=== PATIENT | female | born 1980 | race Caucasian/White ===

== ENCOUNTER 2018-08-13 13:57 | Inpatient (IN) | payer BC ==
[2018-08-13 14:35] VITALS: BMI 30.7
[2018-08-13] MEDS ORDERED: Misoprostol 200 MCG TAB PR PRN (15:45)
[2018-08-13] MEDS ORDERED: NS / Oxytocin 40 units/1000ml 1,000 ML IV PRN (15:45)
[2018-08-13] MEDS ORDERED: Carboprost 250 MCG/ML AMP IM PRN (15:45)
[2018-08-13] MEDS ORDERED: Lactated Ringer's 1,000 ML IV PRN (15:45)
[2018-08-13] MEDS ORDERED: Diphenoxylate HCl/Atropine Tablet PO PRN ×2 (15:45)
[2018-08-13] MEDS ORDERED: Methylergonovine 0.2 MG/ML VIAL IM PRN ×2 (15:45→18:13)
[2018-08-13] MEDS ORDERED: Ondansetron PF 4 MG/2 ML Vial IVP PRN ×2 (15:45→18:13)
[2018-08-13] MEDS ORDERED: Ibuprofen 800 MG TAB PO PRN ×2 (15:45→18:01)
[2018-08-13] MEDS ORDERED: Promethazine HCl 25 MG/ML VIAL IM PRN (15:45)
[2018-08-13] MEDS ORDERED: HYDROcodone/Acetaminophen 5/325 mg Tablet PO PRN ×4 (15:45→18:13)
[2018-08-13] MEDS ORDERED: Lidocaine 1% (PF) 30 ML VIAL SC PRN (15:45)
--- NOTE | 2018-08-13 15:53 | PDOC.LDHP ---
Labor and Delivery H&P Chief complaint: contractions HPI: Patient has been having irregular contractions for the past two days. the come and go in intensity and frequency. Report good movement. Denies LOF/rom. Current gestational age (weeks): 40 Due date: 08/08/18 Dating criteria: last menstrual period Grav: 8 Para: 6 OB History Details: 2004 - 39weeks , forceps, 9lbs 4 ounces 2005 8lbs 15oz 2007 39weeks 8lbs 4 oz 2009 39 weeks 8lbs 7 oz 2011 SAB 2013 39 week 6 lbs 13 oux 2016 38 week SVDs 8. 7oz 2018 - current Current complications: other (AMA) Abnormal US findings: No Past Medical History: thyroid cancer. Current medications: pre- vitamins Previous surgical history: other (thyroidectomy 2015 tonsillectomy) Allergies/Adverse Reactions: Allergies Allergy/AdvReac Type Severity Reaction Status Date / Time No Known Allergies Allergy Unverified 08/13/18 14:36 Social history: none - Physical Exam Vital signs reviewed and normal: yes General: breathing through contractions Heart: RRR Lungs: nonlabored breathing Abdomen: gravid FHT: category 1 - Vaginal Exam cm dilated: 6 Effacement: 90% Station: -1 - OB Labs Blood type: O RH: positive Antibody Screen: negative HIV: negative RPR: negative HEPSAg: negative GBS: negative Rubella: immune - Assessment L&D Assessment: term patient in labor (in early labor) - Plan Plan: admit to L&D -: low intervention protocols. anticipate Anticipate PPH for grand multiparous.
[2018-08-13 16:27] LABS: Hemoglobin 11.9 g/dL (12.0-16.0); Mean Corpuscular HGB CONC 32.9 g/dL (32.0-36.0); Mean Corpuscular Hemoglobin 27.7 pg (27.0-31.0); Mean Platelet Volume 7.7 fL (7.4-10.4); Platelet Count 180 thou/uL (130-400); RBC Distribution Width 13.3 % (11.5-14.5); Red Blood Cell (RBC) Count 4.32 mill/uL (4.20-5.40)
[2018-08-13 17:06] LABS: Syphilis Antibody Nonreactive (Nonreactive); Syphilis Antibody Index 0.04 S/CO (<1.00 Non-Reactive)
[2018-08-13 17:07] LABS: HBSAg Index 0.19 S/CO (0-0.99); Hep B Surf Ag Non-Reactive S/CO (NonReactive)
[2018-08-13] MEDS ORDERED: Oxytocin 10 UNITS/ML VIAL ONE (17:26)
--- NOTE | 2018-08-13 17:57 | PDOC.OPDEL ---
OB Operative/Delivery Note Delivery Dr/Surgeon: Natalie Wilson Pre-Delivery Diagnosis: active labor Procedure/Post Delivery Dx: spontaneous vaginal delivery Weeks gestation: 40 Anesthesia: none - Findings A Sex: female - 1 min: 8 - 5 min: 9 - Additional Findings/Plan Placenta delivered: spontaneous Repaired Obstetrical Laceration: none Estimated blood loss: 587mL QBL Post delivery plan: routine recovery
[2018-08-13] MEDS ORDERED: Milk Of Magnesia 30 ML UDCUP PO PRN (18:13)
[2018-08-13] MEDS ORDERED: NS / Oxytocin 40 units/1000ml 1,000 ML IV SCH (18:13)
[2018-08-13] MEDS ORDERED: Benzocaine/Menthol 20-0.5% 60 ML CAN TOP PRN (18:13)
[2018-08-13] MEDS ORDERED: Misoprostol 200 MCG TAB VAG PRN (18:13)
[2018-08-13] MEDS ORDERED: Adacel (T-DAP) 0.5 ML VIAL IM ONE (18:13)
[2018-08-13] MEDS ORDERED: Bisacodyl 10 MG SUPP PR PRN (18:13)
[2018-08-13] MEDS: Docusate Calcium (SURFAK) 240 MG CAP PO SCH (21:26)
[2018-08-13] MEDS ORDERED: Acetaminophen 325 MG TAB PO PRN ×2 (21:37)
[2018-08-13] MEDS ORDERED: Ibuprofen 800 MG TAB PO SCH (22:00)
[2018-08-14] MEDS: Ibuprofen 800 MG TAB PO SCH ×3 (02:07→19:50)
[2018-08-14 06:21] LABS: Hemoglobin 10.6 g/dL (12.0-16.0); Mean Corpuscular HGB CONC 32.9 g/dL (32.0-36.0); Mean Corpuscular Hemoglobin 27.7 pg (27.0-31.0); Mean Corpuscular Volume 84.3 fL (78.0-98.0); Platelet Count 196 thou/uL (130-400); RBC Distribution Width 13.1 % (11.5-14.5); Red Blood Cell (RBC) Count 3.84 mill/uL (4.20-5.40); White Blood Cell (WBC) Count 9.7 thou/uL (4.8-10.8)
[2018-08-14] MEDS: Ferrous Sulfate 325 MG TAB PO SCH ×2 (08:38→18:59)
[2018-08-14] MEDS: Docusate Calcium (SURFAK) 240 MG CAP PO SCH (10:50)
[2018-08-14 16:15] VITALS: BP 123/72; TEMP 97.5
== END 2018-08-14 19:50 | disposition home or self-care (01) | DRG 807 ==
LOC: L&D/OP 13:57 → L&D 17:00 → L&D-LIB 18:18 → 3SE 20:47
PROVIDERS: ADMIT Obstetrics & Gynecology; ATTEND Obstetrics & Gynecology
PROC: 10E0XZZ Delivery of Products of Conception, External Approach (ICD-10-PCS; principal; 2018-08-13)
DX: O80 Encounter for full-term uncomplicated delivery (principal); Z3A.40 40 weeks gestation of pregnancy; Z85.850 Personal history of malignant neoplasm of thyroid; Z37.0 Single live birth
CPT/HCPCS: 36415; 85027; 86780; 86850; 86900; 86901; 87340; 99285; J2001; J2590

== ENCOUNTER 2019-11-20 14:51 | Outpatient (CLI) | payer BC ==
--- NOTE | 2019-11-20 15:44 | MMO ---
Right Breast MAMMO Unilat Diag DDI RT+ELIN. CLINICAL HISTORY: Patient is 39 years old and is seen for additional evaluation requested at current screening. The patient has the following family history of breast cancer: paternal grandmother, at age 80. The patient has a history of thyroid cancer in 2016. VIEWS: The views performed were: right craniocaudal spot compression magnification; right mediolateral spot compression magnification; and right mediolateral with tomosynthesis. FILMS COMPARED: The present examination has been compared to prior imaging studies performed at [facility] on 11/11/2019, and at [facility] on 11/20/2019. This study has been interpreted with the assistance of computer-aided detection. MAMMOGRAM FINDINGS: The breast is heterogeneously dense, which could obscure a lesion on mammography. There are fine pleomorphic calcifications with segmental distribution seen in the right breast at 6 o'clock. These extend over a significant portion of the lower central and lower outer aspect of the right breast. No sonographic abnormality is seen in this region. IMPRESSION: CALCIFICATIONS IN THE RIGHT BREAST ARE SUSPICIOUS. BIOPSY IS RECOMMENDED. RESULTS AND RECOMMENDATIONS DISCUSSED WITH THE PATIENT AND QUESTIONS ANSWERED. THE RESULTS OF THIS EXAM WERE SENT TO THE PATIENT. ACR BI-RADS Category 4 - Suspicious abnormality - biopsy should be considered MAMMOGRAPHY NOTE: 1. A negative mammogram report should not delay a biopsy if a dominant of clinically suspicious mass is present. 2. Approximately 10% to 15% of breast cancers are not detected by mammography. 3. Adenosis and dense breasts may obscure an underlying neoplasm. Reported by: SELIN MCKINNEY MD Electonically Signed: [id number]
--- NOTE | 2019-11-20 15:45 | MMO ---
Right US Breast Limited Rt. CLINICAL HISTORY: Patient is 39 years old and is seen for . VIEWS: The views performed were: . FILMS COMPARED: The present examination has been compared to prior imaging studies performed at [facility] on 11/11/2019, and at [facility] on 11/20/2019. This study has been interpreted with the assistance of computer-aided detection. RIGHT BREAST ULTRASOUND FINDINGS: No sonographic abnormality is evident to correspond to the suspicious calcifications seen mammographically. IMPRESSION: AREA IN THE RIGHT BREAST IS SUSPICIOUS. BIOPSY IS RECOMMENDED. PLEASE SEE CONCURRENTLY DICTATED MAMMOGRAM REPORT. THE RESULTS OF THIS EXAM WERE SENT TO THE PATIENT. ACR BI-RADS Category 4 - Suspicious abnormality - biopsy should be considered MAMMOGRAPHY NOTE: 1. A negative mammogram report should not delay a biopsy if a dominant of clinically suspicious mass is present. 2. Approximately 10% to 15% of breast cancers are not detected by mammography. 3. Adenosis and dense breasts may obscure an underlying neoplasm. Reported by: SELIN MCKINNEY MD Electonically Signed: [id number]
== END 2019-11-20 14:52 | disposition home or self-care (01) ==
LOC: BICMAMMO 14:51
PROVIDERS: ATTEND Advanced Practice Midwife
DX: N63.10 Unspecified lump in the right breast, unspecified quadrant (principal); R92.1 Mammographic calcification found on diagnostic imaging of breast
CPT/HCPCS: G0279

== ENCOUNTER → 2019-12-10 | Day surgery (SDC) | payer BC ==
--- NOTE | 2019-12-10 09:21 | MMO ---
Stereotactic guided biopsy right breast posterior microcalcifications Stereotactic guided biopsy right breast anterior microcalcifications Surgical specimen mammography x2 Diagnostic mammogram right breast post biopsy HISTORY: Abnormal mammogram. 2 different areas of suspicious microcalcifications. FINDINGS: After explaining the procedure and answering all questions, the more posterior of the micro calcification clusters at the inferior aspect of the right breast was visualized. Sterile technique, buffered local anesthesia, stereotactic guidance, and a medial approach were used to caref ully advance a 10-gauge vacuum-assisted needle into the cluster of microcalcifications. A total of 6 specimens were obtained. Specimen mammography shows microcalcifications throughout the tissue. Loca lization clip was placed in the biopsy bed under stereotactic guidance. Needle was removed and hemostasis obtained using direct pressure. A new supply of surgical hardware was used for the second sampling. The more anterior of the microcal cification clusters at the inferior aspect of the right breast was visualized Sterile technique, buffered local anesthesia, stereotactic guidance, and a medial approach were used to carefully advanc e a 10-gauge vacuum-assisted needle into the cluster of microcalcifications. A total of 6 specimens were obtained. Specimen mammography shows microcalcifications throughout the tissue. A localization c lip was placed in the biopsy bed but was not initially seen with stereotactic imaging. A second clip was placed in the biopsy bed. Needle was removed and hemostasis obtained using direct pressure. Patient tolerated the procedure wel l and was eventually dismissed in good condition. Post procedure mammographic evaluation shows heterogeneously dense fibroglandular tissue. A portion o f the microcalcification clusters at the inferior aspect of the right breast have been removed. The localization clip associated with the more posterior cluster lies at the far anterior margin of the s ampling area. 2 localization clips are associated with the far anterior margin of the more anterior sampling area. They are seen to lie within the anterior aspect of the fluid collection seen at the ti me of the biopsy, lying in bed was the dependent portion of the cavity at the time of the procedure. IMPRESSION: Technically successful stereotactic guided biopsy of 2 separate clusters of abnormal micr ocalcifications in the right breast. Pathology is pending.
--- NOTE | 2019-12-13 09:00 | MMO ---
ADDENDUM: Pathology results are now available. Both specimens showed DCIS. This correlates with the imaging findings. Results will be discussed with the patient as she follows up with Dr. Zee. POS: TPC
== END ==
LOC: MAMMO 06:58
PROVIDERS: ATTEND Specialist
PROC: 0H9T3ZX Drainage of Right Breast, Percutaneous Approach, Diagnostic (ICD-10-PCS; principal; 2019-12-10)
DX: D05.11 Intraductal carcinoma in situ of right breast (principal); N60.21 Fibroadenosis of right breast
CPT/HCPCS: 19081; 19082; 76098; 88305; 88341; 88342

== ENCOUNTER 2020-02-25 13:46 | Outpatient (CLI) | payer BC ==
--- NOTE | 2020-02-25 14:59 | RAD ---
RADIOGRAPH CHEST 1 VIEW: DATE: 02/25/2020 HISTORY: 39-year-old female with ductal carcinoma in situ of right breast. Presurgical clearance. FINDINGS: The visualized lung gillette are clear. The cardiomediastinal silhouette and hilar shadows are normal. The lateral costophrenic angles are sharp. The osseous structures appear normal. There is no pneumothorax. IMPRESSION: Negative.
== END 2020-02-25 13:47 | disposition home or self-care (01) ==
LOC: RAD 13:46
DX: D05.11 Intraductal carcinoma in situ of right breast (principal)
CPT/HCPCS: 36415; 71045; 80053; 85027; 85610; 85730

== ENCOUNTER 2020-04-24 07:55 | Outpatient (CLI) | payer BC ==
--- NOTE | 2020-04-24 09:45 | ULT ---
TRANSABDOMINAL AND TRANSVAGINAL PELVIC ULTRASOUND: Date: 04/24/2020 INDICATION: History of uterine prolapse. TECHNIQUE: Bullard scale, color Doppler, and spectral Doppler images were obtained of the pelvis via transabdominal and transvaginal approach. FINDINGS: Uterus measures 6.0 x 5.5 x 3.8 cm and is retroverted. Endometrial stripe measures 5.7 mm. Right ovary measures 2.6 x 2.0 x 2.8 cm. There is a right ovarian cyst measuring 7.0 mm. Left ovary measures 2.0 x 1.9 x 1.2 cm. There is normal flow to both ovaries. No free fluid is evident. IMPRESSION: 1. No acute sonographic abnormality involving the pelvis. 2. Small right ovarian follicular cyst measuring 7.0 mm. POS: BH
== END 2020-04-24 07:56 | disposition home or self-care (01) ==
LOC: BICULT 07:55
DX: N81.4 Uterovaginal prolapse, unspecified (principal); R32 Unspecified urinary incontinence; N83.01 Follicular cyst of right ovary
CPT/HCPCS: 76856

== ENCOUNTER 2020-05-14 19:00 | Outpatient (CLI) | payer BC | END 2020-05-14 19:01 | disposition home or self-care (01) | LOC: SLEEPLAB 19:00 | PROVIDERS: ATTEND Internal Medicine Pulmonary Disease | DX: G47.33 Obstructive sleep apnea (adult) (pediatric) (principal); R53.83 Other fatigue; G47.00 Insomnia, unspecified; F41.8 Other specified anxiety disorders; R06.83 Snoring; G47.10 Hypersomnia, unspecified; I10 Essential (primary) hypertension; E66.9 Obesity, unspecified; Z68.31 Body mass index [BMI] 31.0-31.9, adult | CPT/HCPCS: 95811 ==

== ENCOUNTER 2020-08-06 09:56 | Outpatient (CLI) | payer BC ==
--- NOTE | 2020-08-11 06:53 | EKG ---
Test Reason : PREOP Blood Pressure : / mmHG Vent. Rate : 071 BPM Atrial Rate : 071 BPM P-R Int : 144 ms QRS Dur : 088 ms QT Int : 410 ms P-R-T Axes : 041 043 025 degrees QTc Int : 445 ms Normal sinus rhythm Normal ECG No previous ECGs available Confirmed by HARI PERAZA MD ([id number]) on 08/11/2020 6:53:30 AM Referred By: [facility] Confirmed By:HARI PERAZA MD
== END 2020-08-06 09:57 | disposition home or self-care (01) ==
LOC: EKG 09:56
DX: N65.1 Disproportion of reconstructed breast (principal); N65.0 Deformity of reconstructed breast; M95.9 Acquired deformity of musculoskeletal system, unspecified; Z85.3 Personal history of malignant neoplasm of breast
CPT/HCPCS: 36415; 80053; 85025; 93005; 93010

== ENCOUNTER 2022-03-10 18:00 | Outpatient (CLI) | payer BC | END 2022-03-10 18:01 | disposition home or self-care (01) | LOC: SLEEPLAB 18:00 | PROVIDERS: ATTEND Internal Medicine | DX: G47.33 Obstructive sleep apnea (adult) (pediatric) (principal); R63.4 Abnormal weight loss | CPT/HCPCS: 95800 ==

== ENCOUNTER 2024-02-28 11:32 | Outpatient (CLI) | payer BC | END 2024-02-28 11:33 | disposition home or self-care (01) | LOC: SCSRAD 11:32 | PROVIDERS: ATTEND Nurse Practitioner Family | DX: S69.91XA Unspecified injury of right wrist, hand and finger(s), initial encounter (principal) ==